=== PATIENT | male | born 1960 | race Two or more races ===

== ENCOUNTER 2016-11-29 16:58 | Emergency (ER) | payer OTHER ==
[~2016-11-29] VITALS: Ht 180.3 cm; Wt 106.1 kg
[2016-11-29 21:23] VITALS: BP 138/78
== END 2016-11-29 21:23 | disposition home or self-care (01) ==
LOC: ED 16:58
DX: S43.491A Other sprain of right shoulder joint, initial encounter (principal); M54.6 Pain in thoracic spine; E11.9 Type 2 diabetes mellitus without complications; W01.0XXA Fall on same level from slipping, tripping and stumbling without subsequent striking against object, initial encounter; Y93.89 Activity, other specified; Y92.89 Other specified places as the place of occurrence of the external cause; Y99.8 Other external cause status
CPT/HCPCS: J1885